=== PATIENT | female | born 1980 | race Two or more races ===

== ENCOUNTER 2019-10-19 18:54 | Emergency (ER) | payer OTHER, BC ==
[~2019-10-19] VITALS: Ht 167.6 cm; Wt 59.0 kg
[2019-10-19 19:35] VITALS: BP 112/62
--- NOTE | 2019-10-19 19:56 | PHYS DOC ---
Adult General Chief Complaint Chief Complaint: FEVER HPI HPI Patient is a 38 year old female who presents to the ED today complaining of body aches, fevers, chills, cough, symptoms began 3 days ago. Patient was seen by the PCP today and tested positive for influenza A, was started on Tamiflu and codeine. She presents to the ED if this evening stating her symptoms are still present and she is running a fever. She did not take anything for her fever. She is also complaining of her menstrual period stating early with cramping but denies any chance she is . Review of Systems Review of Systems Constitutional: Reports fevers, body aches and chills Eyes: Denies change in visual acuity, redness, or eye pain [] HENT: Denies nasal congestion or sore throat [] Respiratory: Reports cough, denies shortness of breath [] Cardiovascular: No additional information not addressed in HPI [] GI: Reports menstrual cramps, denies nausea, vomiting, bloody stools or diarrhea [] : Denies dysuria or hematuria [] Musculoskeletal: Denies back pain or joint pain [] Integument: Denies rash or skin lesions [] Neurologic: Denies headache, focal weakness or sensory changes [] All other systems were reviewed and found to be within normal limits, except as documented in this note. Physical Exam Physical Exam Constitutional: Well developed, well nourished, no acute distress, non-toxic appearance. [] HENT: Normocephalic, atraumatic, bilateral external ears normal, oropharynx moist, no oral exudates, nose normal. [] Eyes: PERRLA, EOMI, conjunctiva normal, no discharge. [] Neck: Normal range of motion, no tenderness, supple, no stridor. [] Cardiovascular:Heart rate regular rhythm, no murmur [] Lungs & Thorax: Bilateral breath sounds clear to auscultation [] Abdomen: Bowel sounds normal, soft, no tenderness, no masses, no pulsatile masses. [] Skin: Warm, dry, no erythema, no rash. [] Back: No tenderness, no CVA tenderness. [] Extremities: No tenderness, no cyanosis, no clubbing, ROM intact, no edema. [] Neurologic: Alert and oriented X 3, normal motor function, normal sensory func tion, no focal deficits noted. [] Psychologic: Affect normal, judgement normal, mood normal. [] EKG EKG [] Radiology/Procedures Radiology/Procedures [] Course & Med Decision Making Course & Med Decision Making Pertinent Labs and Imaging studies reviewed. (See chart for details) This is a 38-year-old female patient presenting to the ED today complaining of flulike symptoms including body aches chills fever and a cough, patient was seen by the PCP today, was diagnosed with influenza A, was put on Tamiflu and codeine. She presents back to the ED complaining of sense symptoms. Patient appears well. Recommended she goes home, pushes fluids, rest, maintain good hand hygiene, take Tylenol/Motrin for pain or fever. She is also complaining of her menstrual cycle starting early with cramps though she states she is not . Recommended tylenol/ibuprofen for pain. Provided return precautions and discharged in stable condition. Dragon Disclaimer Dragon Disclaimer This electronic medical record was generated, in whole or in part, using a voice recognition dictation system. Departure Departure Impression: Primary Impression: Influenza A Additional Impressions: Fever Dysmenorrhea Disposition: 01 HOME, SELF-CARE Condition: STABLE Referrals: UNKNOWN PCP NAME (PCP) follow up with your doctor in 1 week Patient Instructions: Influenza A (H1N1) Additional Instructions: You have influenza A and menstrual cramps. Influenza is a viral illness. Please take Tylenol and/ Motrin as needed for fever or pain. Please continue taking Tamiflu you got from your own primary care doctor. You can take codeine as needed for the pain. You need to push fluids. You need to rest, maintain good hand hygiene and see your doctor in the next 1-2 weeks. Problem Qualifiers Additional Impressions: Fever Fever type: unspecified Qualified Codes: R50.9 - Fever, unspecified [employer] Oct 19, 2019 19:56
[2019-10-19] MEDS: ACETAMINOPHEN 500 MG TABLET PO ONE (20:01)
== END 2019-10-19 20:15 | disposition home or self-care (01) ==
LOC: ER 18:54
DX: J10.1 Influenza due to other identified influenza virus with other respiratory manifestations (principal); N94.6 Dysmenorrhea, unspecified
CPT/HCPCS: 99282